=== PATIENT | female | born 1990 | race Caucasian/White ===

== ENCOUNTER 2016-05-28 05:46 | Emergency (ER) | payer OTHER ==
[~2016-05-28] VITALS: Ht 170.2 cm; Wt 75.0 kg
[2016-05-28 05:51] VITALS: BP 134/74; TEMP 98.1
[2016-05-28] MEDS ORDERED: CELEXA10 MG PO (05:56)
[2016-05-28 06:32] LABS: PH 5 (5-8); URINE APPEARANCE Clear; URINE BACTERIA Rare /hpf; URINE BILIRUBIN Negative (NEGATIVE); URINE BLOOD 3+ (NEGATIVE); URINE COLOR Yellow; URINE GLUCOSE Negative (NEGATIVE); URINE KETONE Negative (NEGATIVE); URINE RBC >50 /hpf; URINE UROBILINOGEN Negative (NEGATIVE)
[2016-05-28 06:33] LABS: URINE WBC 0-2 /hpf
[2016-05-28 07:45] LABS: BASO # 0.1 (0.0-0.2); BASO % 0.6 % (0.0-2.0); EOS # 0.1 (0.0-0.7); EOS % 1.3 % (0-4.0); GRAN # 7.4 (1.4-6.5); GRAN % 71.4 % (42.2-75.2); HEMATOCRIT 39.7 % (37.0-47.0); HEMOGLOBIN 13.4 g/dl (12.5-16.0); LYMPH # 2.1 (1.2-3.4); LYMPH % 20.6 % (20.0-51.0); MEAN CELL VOLUME 89 fl (80.0-100.0); MEAN CORPUSCULAR HEMOGLOBIN 30 pg (27.0-31.0); MEAN CORPUSCULAR HGB CONC 34 g/dl (33.0-37.0); MEAN PLATELET VOLUME 10.6 fl (7.4-10.4); MONO # 0.6 (0.1-0.6); MONO % 5.9 % (1.7-9.3); PLATELET COUNT 188 K/mm3 (130-400); RED BLOOD COUNT 4.44 M/mm3 (4.10-5.30); REDCELL DISTRIBUTION WIDTH-CV 13.4 % (11.5-14.5); WHITE BLOOD COUNT 10.4 K/mm3 (4.8-10.8)
[2016-05-28 09:43] VITALS: PULSE 78
[2016-05-28 10:31] LABS: CHLAMYDIA/TRACH by PCR Female NOT DETECTED; NEISSERIA GON by PCR Female NOT DETECTED
== END 2016-05-28 09:42 | disposition home or self-care (01) ==
LOC: COL.ER 05:46
PROVIDERS: Emergency Medicine; Nurse Practitioner
DX: N92.0 Excessive and frequent menstruation with regular cycle (principal)